=== PATIENT | female | born 1955 | race Caucasian/White ===

== ENCOUNTER 2016-09-02 12:45 | Inpatient (IN) | payer MEDICAID ==
[~2016-09-02] VITALS: Ht 165.1 cm; Wt 75.4 kg
[~2016-09-02 12:45] MED LIST: COLC0.6T37 PO; MULT1TAB60 PO; PRED5TAB PO
[2016-09-02] MEDS ORDERED: SODIUM CHLORIDE 0.9% 1,000 ML IV ONE ×2 (16:23→17:30)
[2016-09-02] MEDS ORDERED: ONDANSETRON 2MG/ML, 2ML IVPush ONE ×3 (16:30→22:30)
[2016-09-02] MEDS ORDERED: VANCOMYCIN PER PHARMACY MC ONE (16:30)
[2016-09-02] MEDS ORDERED: ACETAMINOPHEN 500 MG TABLET PO ONE (16:30)
[2016-09-02] MEDS ORDERED: SODIUM CHLORIDE FLUSH 10ML SYR IVF ONE (16:30)
[2016-09-02] MEDS ORDERED: SODIUM CHLORIDE 0.9% 1,000ML IVBOLUS ONE ×2 (16:30→17:30)
[2016-09-02] MEDS ORDERED: VANCOMYCIN 1,400 MG in SODIUM CHLORIDE 0.9% 250 ML IV ONE (16:30)
[2016-09-02] MEDS ORDERED: ACETAMINOPHEN 500 MG TABLET ONE (16:42)
[2016-09-02] MEDS ORDERED: HYDROmorphone 1 MG/ML, 1ML ONE (16:42)
[2016-09-02] MEDS ORDERED: ONDANSETRON 2MG/ML, 2ML ONE ×2 (16:42→19:23)
[2016-09-02] MEDS: HYDROmorphone 1 MG/ML, 1ML IVPush PRN (16:52)
[2016-09-02 16:55] LABS: HEMOGLOBIN 14.1 g/dL (11.7-16.4)
[2016-09-02 17:08] LABS: ASPARTATE AMINO TRANSFERASE 82 U/L (15-37); BLOOD UREA NITROGEN 8 mg/dL (7-18)
[2016-09-02 17:14] LABS: IS PT STATUS REG ER OR PRE ER? YES
[2016-09-02] MEDS ORDERED: POTASSIUM CHLORIDE 10% 40 MEQ/30 ML UDC PO ONE (17:30)
[2016-09-02] MEDS ORDERED: POTASSIUM CHLORIDE 40 MEQ in SODIUM CHLORIDE 0.9% 500 ML IV ONE (17:30)
[2016-09-02 19:16] LABS: DIFF TOTAL CELLS COUNTED 100 CELL DIFF
[2016-09-02 19:18] LABS: ANISOCYTOSIS 1+
[2016-09-02 19:20] LABS: VERIFY COUNTS? YES
[2016-09-02] MEDS ORDERED: PHARMACOKINETIC MONITORING MC PRN (23:45)
[2016-09-02] MEDS ORDERED: PHARMACOKINETIC CONSULTATION MC ONE (23:45)
[2016-09-03] MEDS ORDERED: DOCUSATE 100 MG CAPSULE PO PRN
[2016-09-03] MEDS ORDERED: POLYETHYLENE GLYCOL 17 GM PACKET PO PRN
[2016-09-03] MEDS ORDERED: VANCOMYCIN PER PHARMACY MC PRN
[2016-09-03] MEDS: HYDROmorphone 1 MG/ML, 1ML IVPush PRN (00:09)
[2016-09-03 00:20] VITALS: BP 147/86
[2016-09-03] MEDS: PIPERACILLIN/TAZO/PMX 3.375GM 50 ML IV SCH ×4 (01:00→21:28)
[2016-09-03] MEDS: SODIUM CHLORIDE 0.9% 1,000 ML IV SCH ×2 (01:00→06:42)
[2016-09-03] MEDS: HYDROcodone/APAP 5/325 TABLET PO PRN ×4 (01:00→17:03)
[2016-09-03 03:38] VITALS: BP 144/78
[2016-09-03 06:17] LABS: HEMOGLOBIN 12.3 g/dL (11.7-16.4)
[2016-09-03 06:36] LABS: BLOOD UREA NITROGEN 6 mg/dL (7-18)
[2016-09-03 07:21] VITALS: BP 126/86
[2016-09-03] MEDS ORDERED: POTASSIUM CHLORIDE 20 MEQ TAB.ER.PRT PO ONE (08:00)
[2016-09-03] MEDS ORDERED: POTASSIUM CHLORIDE 40 MEQ in SODIUM CHLORIDE 0.9% 500 ML IV ONE ×2 (08:00→09:30)
[2016-09-03] MEDS: MULTIVITAMIN 1 TABLET PO SCH (09:52)
[2016-09-03] MEDS: FOLIC ACID 1 MG TABLET PO SCH (09:52)
[2016-09-03] MEDS: THIAMINE 100MG TABLET PO SCH (09:52)
[2016-09-03 13:10] LABS: DAU SCREEN DISCLAIMER
[2016-09-03 14:17] VITALS: BP 129/78
[2016-09-03] MEDS: VANCOMYCIN 1,500 MG in SODIUM CHLORIDE 0.9% 250 ML IV SCH (14:30)
[2016-09-03] MEDS ORDERED: ONDANSETRON 2MG/ML, 2ML IVPush PRN (14:30)
[2016-09-03] MEDS ORDERED: DIPHENHYDRAMINE 25 MG CAPSULE PO PRN (14:30)
[2016-09-03] MEDS ORDERED: ALBUTEROL SULFATE 2.5 MG/3 ML NPPB PRN (16:30)
[2016-09-03] MEDS ORDERED: CALCIUM GLUCONATE 9.2 MEQ in SODIUM CHLORIDE 0.9% 100 ML IV ONE (16:30)
[2016-09-03] MEDS ORDERED: MAGNESIUM SULFATE PMX 2GM/50ML 50 ML IV ONE (17:00)
[2016-09-03] MEDS ORDERED: CALCIUM GLUCONATE 4.6 MEQ in SODIUM CHLORIDE 0.9% 50 ML IV ONE (17:30)
[2016-09-03 18:40] LABS: ASPARTATE AMINO TRANSFERASE 105 U/L (15-37); BLOOD UREA NITROGEN 4 mg/dL (7-18)
[2016-09-03 18:59] VITALS: BP 132/70
[2016-09-03] MEDS: NEUTRA PHOS K 250 MG TABLET PO SCH (23:52)
[2016-09-03] MEDS: MAGNESIUM CHLORIDE 64 MG TABLET.DR PO SCH (23:52)
[2016-09-04 00:47] VITALS: BP 145/78
[2016-09-04 05:22] LABS: BLOOD UREA NITROGEN 3 mg/dL (7-18)
[2016-09-04] MEDS: PIPERACILLIN/TAZO/PMX 3.375GM 50 ML IV SCH ×3 (05:31→18:00)
[2016-09-04 06:30] VITALS: BP 155/84
[2016-09-04] MEDS ORDERED: POTASSIUM CHLORIDE 40 MEQ in SODIUM CHLORIDE 0.9% 500 ML IV ONE (06:30)
[2016-09-04] MEDS ORDERED: MAGNESIUM SULFATE PMX 2GM/50ML 50 ML IV ONE (06:30)
[2016-09-04] MEDS: HYDROcodone/APAP 5/325 TABLET PO PRN ×2 (07:41→20:27)
[2016-09-04 09:39] LABS: HEMOGLOBIN 12.3 g/dL (11.7-16.4)
[2016-09-04] MEDS: FOLIC ACID 1 MG TABLET PO SCH (10:37)
[2016-09-04] MEDS: THIAMINE 100MG TABLET PO SCH (10:37)
[2016-09-04] MEDS: NEUTRA PHOS K 250 MG TABLET PO SCH ×3 (10:37→20:27)
[2016-09-04] MEDS: MULTIVITAMIN 1 TABLET PO SCH (10:38)
[2016-09-04] MEDS: VANCOMYCIN 1,500 MG in SODIUM CHLORIDE 0.9% 250 ML IV SCH (10:39)
[2016-09-04] MEDS: MAGNESIUM CHLORIDE 64 MG TABLET.DR PO SCH ×2 (10:39→20:27)
[2016-09-04 13:17] VITALS: BP 149/50
[2016-09-04 20:00] VITALS: BP 158/81
[2016-09-05] MEDS: PIPERACILLIN/TAZO/PMX 3.375GM 50 ML IV SCH ×4 (01:12→18:12)
[2016-09-05 02:00] VITALS: BP 149/90
[2016-09-05] MEDS: VANCOMYCIN 1,500 MG in SODIUM CHLORIDE 0.9% 250 ML IV SCH ×2 (02:25→20:35)
[2016-09-05 06:37] VITALS: BP 168/95
[2016-09-05] MEDS: HYDROcodone/APAP 5/325 TABLET PO PRN ×2 (06:51→18:09)
[2016-09-05 08:01] LABS: BLOOD UREA NITROGEN 3 mg/dL (7-18)
[2016-09-05] MEDS: FOLIC ACID 1 MG TABLET PO SCH (08:07)
[2016-09-05] MEDS: THIAMINE 100MG TABLET PO SCH (08:07)
[2016-09-05] MEDS: MULTIVITAMIN 1 TABLET PO SCH (08:07)
[2016-09-05] MEDS: LISINOPRIL 10 MG TABLET PO SCH (10:37)
[2016-09-05 12:44] VITALS: BP 153/86
[2016-09-05 20:00] VITALS: BP 162/87
[2016-09-05] MEDS ORDERED: POTASSIUM CHLORIDE 20 MEQ TAB.ER.PRT PO ONE (20:00)
[2016-09-05] MEDS: MAGNESIUM CHLORIDE 64 MG TABLET.DR PO SCH (20:35)
[2016-09-06 02:00] VITALS: BP 167/85
[2016-09-06] MEDS: HYDROcodone/APAP 5/325 TABLET PO PRN ×4 (03:23→20:33)
[2016-09-06] MEDS: PIPERACILLIN/TAZO/PMX 3.375GM 50 ML IV SCH ×2 (03:27→10:03)
[2016-09-06 06:26] LABS: HEMOGLOBIN 13.9 g/dL (11.7-16.4)
[2016-09-06 06:54] LABS: BLOOD UREA NITROGEN 4 mg/dL (7-18)
[2016-09-06 07:59] VITALS: BP 156/95
[2016-09-06] MEDS: FOLIC ACID 1 MG TABLET PO SCH (10:01)
[2016-09-06] MEDS: MAGNESIUM CHLORIDE 64 MG TABLET.DR PO SCH ×2 (10:01→20:07)
[2016-09-06] MEDS: LISINOPRIL 10 MG TABLET PO SCH (10:01)
[2016-09-06] MEDS: THIAMINE 100MG TABLET PO SCH (10:01)
[2016-09-06] MEDS: MULTIVITAMIN 1 TABLET PO SCH (10:01)
[2016-09-06] MEDS: CLINDAMYCIN PMX 600MG/50ML 50 ML IV SCH ×2 (11:47→19:33)
[2016-09-06] MEDS: POTASSIUM CHLORIDE 20 MEQ TAB.ER.PRT PO SCH (11:49)
[2016-09-06 13:54] VITALS: BP 138/91
[2016-09-06 19:50] VITALS: BP 132/72
[2016-09-07 02:39] VITALS: BP 160/93
[2016-09-07] MEDS: CLINDAMYCIN PMX 600MG/50ML 50 ML IV SCH ×2 (03:12→10:34)
[2016-09-07] MEDS: HYDROcodone/APAP 5/325 TABLET PO PRN ×2 (04:29→09:03)
[2016-09-07 07:09] VITALS: BP 168/95
[2016-09-07] MEDS: POTASSIUM CHLORIDE 20 MEQ TAB.ER.PRT PO SCH (09:04)
[2016-09-07] MEDS: MULTIVITAMIN 1 TABLET PO SCH (09:04)
[2016-09-07] MEDS: FOLIC ACID 1 MG TABLET PO SCH (09:04)
[2016-09-07] MEDS: LISINOPRIL 10 MG TABLET PO SCH (09:05)
[2016-09-07] MEDS: MAGNESIUM CHLORIDE 64 MG TABLET.DR PO SCH (09:05)
[2016-09-07] MEDS: THIAMINE 100MG TABLET PO SCH (09:05)
[2016-09-07] MEDS ORDERED: CLIN300C93 PO (12:42)
[2016-09-07] MEDS ORDERED: HYDR-3240 PO (12:42)
[2016-09-07] MEDS ORDERED: MORPHINE SULFATE 4 MG/ML, 1ML IVPush PRN (13:00)
[2016-09-07 14:19] VITALS: BP 145/86
[2016-09-07] MEDS ORDERED: LISI-167 PO (14:28)
== END 2016-09-07 16:18 | disposition home or self-care (01) | DRG 871 ==
LOC: ED 18:15 → EDIP 20:04 → 4WST 23:20 → DCLOUNGE 09-07 14:22
PROVIDERS: ADMIT Student in an Organized Health Care Education/Training Program; ATTEND Student in an Organized Health Care Education/Training Program
PROC: 0T9B70Z Drainage of Bladder with Drainage Device, Via Natural or Artificial Opening (ICD-10-PCS; 2016-09-02)
PROC: 0M943ZZ Drainage of Left Elbow Bursa and Ligament, Percutaneous Approach (ICD-10-PCS; principal; 2016-09-07)
DX: A41.9 Sepsis, unspecified organism (principal); E43 Unspecified severe protein-calorie malnutrition; J96.01 Acute respiratory failure with hypoxia; L03.114 Cellulitis of left upper limb; E87.1 Hypo-osmolality and hyponatremia; L02.512 Cutaneous abscess of left hand; E87.6 Hypokalemia; E83.51 Hypocalcemia; I10 Essential (primary) hypertension; M70.22 Olecranon bursitis, left elbow; R21 Rash and other nonspecific skin eruption; R19.7 Diarrhea, unspecified; Z59.0 Homelessness; Z68.27 Body mass index [BMI] 27.0-27.9, adult
CPT/HCPCS: 36415; 71010; 80048; 80053; 80202; 80307; 81001; 83605; 83735; 84100; 84134; 84145; 84484; 85025; 85610; 87040; 87086; 87324; 93005; 96361; 96365; 96366; 96375; J0610; J1170; J2405; J2543; J3370; J3480; J3475; J7030; J7040; J7050